=== PATIENT | female | born 1935 | race Caucasian/White ===

== ENCOUNTER 2016-12-09 11:30 | Inpatient (IN) | payer MEDICARE, OTHER ==
[~2016-12-09] VITALS: Ht 165.1 cm; Wt 85.4 kg
--- NOTE | ~2016-12-09 | HP ---
PATIENT'S NAME: JESICA MCKEON [facility] AGE: 81 Y [address] ROOM: [address] [place], [place] [address] LOCATION: GPCU ADMIT DATE: 12/09/2016 History & Physical DISCHARGE DATE: FAMILY PHYSICIAN: PHYSICIAN, UNKNOWN ATTENDING PHYSICIAN: MANOLO OAKES DATE OF SERVICE: CHIEF COMPLAINT: Chest pain. HISTORY OF PRESENT ILLNESS: This is an 81-year-old female who has never complained of chest pain before and does not have any known cardiac history in the past according to the patient. The story is that she was visiting her who currently is living in Swing Bed in [place], [place] and around 4:30 p.m., the patient learned that her daughter had after undergoing cardiac stent placement. Shortly after, she developed this sudden onset of left-sided chest pain that she describes as a needle sharp type of pain, about intensity of 5/10, it is localized, does not radiate, and the pain is constant. The patient was taken down to the emergency room in [place], [place] where troponin was negative to first set according to the patient. According to the patient, no medications were given. The patient was kept for observation, however, her chest pain was always there, but intensity did go down from 5/10 of the initial presentation down to 2/10 overnight. This morning, she still had this chest pain on the left side of the chest, but now she describes as a chest tightness, still 2/10 intensity. A troponin check this morning at an outside facility came back elevated at 1.04, this was at 7:52 a.m. and a repeat troponin again at 9:02 a.m. went down to 0.86. EKG was performed at that time showed sinus rhythm, heart rate is within normal limits, and I do appreciate about [address]-depression in V4 to V6. No prior EKG for comparison. The patient was sent over here for further care. The patient's chest tightness was always on the left side and is not reproducible on touch and does not change with position. It has not worsened, it still has 2/10 intensity. She denies any shortness of breath. REVIEW OF SYSTEMS: As mentioned in the history of present illness. All other systems were reviewed and were negative except those mentioned in the history of present illness. PAST MEDICAL HISTORY: 1. Hypertension. 2. Hyperlipidemia. PATIENT'S NAME: JESICA MCKEON [facility] AGE: 81 Y [address] ROOM: [address] [place], [place] [address] LOCATION: [facility] ADMIT DATE: 12/09/2016 History & Physical DISCHARGE DATE: FAMILY PHYSICIAN: PHYSICIAN, UNKNOWN ATTENDING PHYSICIAN: MANOLO OAKES ALLERGIES: NO KNOWN DRUG ALLERGIES. HOME MEDICATIONS: Currently has been reconciled. The patient does take PERLA inhibitor and baby aspirin at home. PHYSICAL EXAMINATION: VITAL SIGNS: At the time of my dictation, temperature 98, heart rate 90, blood pressure 135/87, respirations 14, and saturation 97% on room air. GENERAL APPEARANCE: Alert and oriented x3, in no acute distress. HEENT: Pupils equally round and reactive to light. Extraocular muscles intact. Anicteric sclerae. Nasal turbinates are normal bilaterally. Moist oral mucosa. NECK: No JVD. CARDIOVASCULAR: Regular rate and rhythm. No murmur, no rubs, no gallops. Normal S1, S2. RESPIRATORY: Clear to auscultation. Chest wall, nontender to palpation. ABDOMEN: Soft, nontender, and nondistended. Bowel sounds present. No hepatosplenomegaly. EXTREMITIES: She has a chronic pedal edema in bilateral lower extremities, this is chronic from her varicose veins. SKIN: No ulcer, no rash, no cyanosis. She does have varicose veins in both legs. NEUROLOGICAL: Grossly nonfocal. LABORATORY DATA: CPK 184, troponin 4.4, CK-MB 11.3. White blood cells 14.7, hemoglobin 15, hematocrit 44, MCV 86.6, and platelets 279. Glucose 124, BUN 19, creatinine 1.5, sodium 140, potassium 3.1, chloride 104, CO2 27, calcium 9.3, and GFR 33. INR 1.04, PTT 51. IMAGING STUDIES: 1. EKG: Three were performed, one from outside facility, two from here today. a. The one from outside facility was done today and that shows minimal ST depression in the V4 to V6. Sinus rhythm. b. Second EKG was done here in our facility on December 09, 2016, at 12:32 p.m. shows sinus rhythm, heart rate of 95. Minimal ST depression in V3 to V6, is about the same depth of ST depression compared to the previous one. c. Third EKG was done here in our facility on December 09, 2016, at 1:54 p.m. shows sinus rhythm, heart rate of 95, still with minimal ST depression in V3 to V4, about the same depth as the prior EKG. No ST elevation. PATIENT'S NAME: JESICA MCKEON [facility] AGE: 81 Y [address] ROOM: [place] [address] LOCATION: [facility] ADMIT DATE: 12/09/2016 History & Physical DISCHARGE DATE: FAMILY PHYSICIAN: PHYSICIAN, UNKNOWN ATTENDING PHYSICIAN: MANOLO OAKES ASSESSMENT AND PLAN: 1. Non-ST elevation myocardial infarction: Start ACS protocol. Continue IV heparin drip per ACS protocol. Start nitroglycerin drip, titrate for chest pain relief. Start aspirin full dose followed by baby dose daily. Start Lopressor p.o. 25 mg b.i.d. with holding parameter. Start Lipitor 80 mg right now and then daily. IV morphine p.r.n. for pain and anxiety relief. Can have a cardiac diet and n.p.o. after midnight in anticipation for cardiac cath in the morning. Echo right now stat. Cycle cardiac enzymes every 6 hours. I will get a chest x-ray also. Further plan will depend on clinical course. If the chest pain gets worse, we will repeat EKG and also cardiac enzymes stat. Currently, the patient is comfortable, only rating the chest tightness as 2/10. I have already spoken to on-call predictive maintenance technician, Dr. Barron, and I have already went over the plan of care with Dr. Barron. 2. Acute kidney injury: IV fluids hydration right now with half normal saline at 75 mL/h and also start p.o. Mucomyst 600 mg p.o. b.i.d. Check renal panel in the morning and also check urine electrolytes. 3. Hypertension: Continue the medications already mentioned in #1. For now, I will hold PERLA inhibitor and amlodipine given that they are not part of the acute ACS protocol, but they can be resumed after the cardiac intervention with holding parameter. 4. Hyperlipidemia: Check lipid panel and also A1c in the morning. Continue with Lipitor 80 mg p.o. daily. 5. Code Status: She is a full code. 6. Deep venous thrombosis prophylaxis: She is on heparin drip. Time spent in care on the day of admission 50 minutes, where 20 minutes was spent on chart review, interview, and also on physical examination. The remainder of the time was spent on counseling including going over the plan of care with the patient and also addressing all the questions and concerns the patient and her family members had to their satisfaction. This time also includes getting in touch with the on-call predictive maintenance technician, Dr. Barron, and went over the plan of care with him and also by calling the rehabilitation technician to perform echo stat. Further plan will depend on clinical course. MANOLO OKAES MD CC/sanna PATIENT'S NAME: JESICA MCKEON [facility] AGE: 81 Y [address] ROOM: [place] [address] LOCATION: [facility] ADMIT DATE: 12/09/2016 History & Physical DISCHARGE DATE: FAMILY PHYSICIAN: PHYSICIAN, UNKNOWN ATTENDING PHYSICIAN: MANOLO OAKES /[id number] D: [id number] T: [id number] HISTORY & PHYSICAL
--- NOTE | ~2016-12-09 | CATH ---
Cardiac Diagnostic Report Demographics Patient Name MIKE MOONEY Gender Female A Date of 1935 Age 81 year(s) Patient Number [id number] Date of Study 12/10/2016 Visit Number [id number] Room Number G[address] [place] [id number] Ht 165.1 cm Wt 85.45 kg Referring Shazia Andrews Lucas Primary Physician Physician Performing Beatrice Cui MD Secondary Physician Physician Diagnostic Beatrice Cui MD Assisting Physician Physician Interventional Physician Corner Trimmer Operator Physician Findings and Conclusions Diagnostic Findings and Conclusion Nonobstructive CAD. Diagnostic Recommendations Medical therapy. Beta blockers. PERLA-I. Procedure Description The patient was brought to the diagnostic cardiac catheterization-EP laboratory in the fasting, non-sedated state. Informed consent was obtained in the written and verbal form after the risks and benefits were explained. The patient had no further questions and agreed to proceed. The planned puncture-incision site(s) were shaved and prepped with ChloraPrep and draped in the usual sterile manner. Conscious sedation, supplemental oxygen, and pain control medications were delivered by a registered nurse under physician guidance. Surface ECG rhythm, blood pressure measurement, and pulse oximetry were monitored throughout the procedure. Arterial access. The access site was infiltrated with lidocaine. The vessel was entered with the Seldinger technique. A sheath was advanced into the vessel and used for catheter placement. Selective left coronary angiography. A catheter was advanced into the left coronary vessel ostium under Fluoroscopic guidance. Contrast was injected by hand. Images were obtained in multiple projections. Selective right coronary angiography. A catheter was advanced into the right coronary vessel ostium under fluoroscopic guidance. Contrast was injected by hand. Images were obtained in multiple projections. Left heart catheterization with ventriculography. A catheter was advanced across the aortic valve to the left ventricle under fluoroscopic guidance. Resting hemodynamics were obtained. With the catheter at the left ventricular apex, contrast was injected. Images were obtained in [facility] projections. Post-ventriculography LV pressure was obtained. The catheter was gradually withdrawn into the aorta with continuous pressure recording. Arterial artery hemostasis was achieved. The patient was transferred to a regular nursing floor via cart accompanied by a nurse. The patient left the laboratory in stable condition. Diagnostic Cath Status: Urgent Procedure Procedure Type Diagnostic procedure:Ventriculogram:, Left, Angiography:, Coronary Angios w/[facility] Indications: Elevated Troponin. The procedure was explained in detail to the patient. Risks, complications and alternative treatments were reviewed. Written consent was obtained. Medications Reviewed with Patient prior to Procedure. Angiographic Findings Dominance: Right Cardiac Arteries and Lesion Findings LMCA: Normal (0% Stenosis).Large. LAD: Medium, proximal plaque. Diagonal 1 small, okay. Lesion on Prox LAD: 40% stenosis . LCx: Normal (0% Stenosis).Large, normal. OM 1 small, okay. OM 2 large, normal. RCA: Normal (0% Stenosis).Medium. PL medium, normal. PDA medium, normal. Coronary Tree Procedure Data Procedure Date Date: 12/10/2016Start: 11:44 AMEnd: 12:06 PM Entry Locations - Retrograde Percutaneous access was performed through the Right Femoral artery (Primary location). A 6 Fr sheath was inserted. Hemostasis was successfully obtained using Perclose ProGlide (Cole). Closure Comments: Deployed by RT. Jadyn. Procedure Medications Order and Administration + + + +-------+ !Time !Medication !Dosage !Route ! + + + +-------+ !12/10/2016 11:43 AM !Versed !1 mg !I.V. ! + + + +-------+ !12/10/2016 11:44 AM !Fentanyl !25 mcg !I.V. ! + + + +-------+ !12/10/2016 11:49 AM !Oxygen !2 l/min !NC ! + + + +-------+ !12/10/2016 11:54 AM !Nitroglycerin !1 tabs !S.L. ! + + + +-------+ Devices Used - A6 Fr. BS JL 4 Diag. Catheterwas used for:Left coronary angiography. - A6 Fr. BS JR 4 Diag. Catheterwas used for:Right coronary angiography. - A6 Fr. BS Angled Pigtail Diag. Catheterwas used for:Left ventriculography. Contrast Material - Isovue 37879 ml Fluoroscopy Time: Diagnostic: 2:54 minutes. Total: 2:54 minutes. Fluoroscopy Dose: Diagnostic: 906 mGy. Total: 906 mGy. Estimated Blood Loss: 3 ml. Medical History Performed Procedures and Imaging Results - No ACC stress or imaging studies were performed. Allergies - No known allergies. Risk Factors The patient risk factors include:last creatinine: 1.3 mg/dl, creatinine clearance: 44.23 ml/min and former tobacco use. Admission Data Admission Date: 12/09/2016 Admission Time: 11:51 AM Admit Source: [facility] facility Insurance Payors: Medicare. Admission Medications + +------+------+ + + + + !Medication !Dosage!Times !Last !Last !Administered !Comments ! ! ! !Per !Delivery !Delivery ! ! ! ! ! !Day !Date !Time ! ! ! + +------+------+ + + + + !Aspirin ! ! ! ! !Yes ! ! !(any) ! ! ! ! ! ! ! + +------+------+ + + + + !PERLA ! ! ! ! !Yes ! ! !Inhibitor ! ! ! ! ! ! ! !(any) ! ! ! ! ! ! ! + +------+------+ + + + + Clinical Evaluation Leading to Procedure - The patient's CAD presentation was assessed as: Non-STEMI. - The patient's anginal syndrome during the past two weeks was assessed as: Class IV according to the [place] Cardiovascular Society Classification System (CCS). Anti-anginal medications were prescribed during the past two weeks. The medication is: Ca channel Blockers. VA LV function assessed as:Abnormal. Ejection Fraction - Method: LV gram. EF%: 5. LVA Segment Contractility 1 - Normal 3 - Mild 5 - Severe 7 - Dyskinesis hypokinesis hypokinesis 2 - 4 - Moderate 6 - Akinesis 8 - Aneurysm Hypokinesis hypokinesis Hemodynamics Condition: Rest O2 Consumption: Estimated: 179.98Heart Rate: 81 bpm Pressures (mmHg) +-----+ + !Site !Pressure ! +-----+ + !AO !99/59 (69) ! +-----+ + !AO !93/37 (62) ! +-----+ + !LV !98/7 ,23 ! +-----+ + !LV !103/8 ,22 ! +-----+ + !LV !98/7 ,24 ! +-----+ + !LV !98/7 ,24 ! +-----+ + !AO !104/44 (71) ! +-----+ + !LV !99/7 ,23 ! +-----+ + Valve Gradients and Areas + +---------+---------+---------+ +---------+ + !Valve !Peak !Mean !Area !Index !Flow !Source ! + +---------+---------+---------+ +---------+ + !Aortic !0 !0 ! ! ! ! ! + +---------+---------+---------+ +---------+ + !Aortic !0 !0 ! ! ! ! ! + +---------+---------+---------+ +---------+ + Shunts Oxygen Values O2 Capacity 204 O2 Consumption 179.98 Discharge Data Discharge Date: 12/11/2016 Hospital Status: Inpatient Signatures dtt: See Barron (cardio) dtd: 12/10/16 1144 Physician Self Edit
--- NOTE | ~2016-12-09 | ECHO ---
Transthoracic Echocardiography Report (TTE) Demographics Patient Name JESICA MCKEON Date of Study 12/09/2016 A Patient Number [id number] Visit Number [id number] Date of 1935 Room Number G6327 Gender Female Number Age 81 year(s) Referring Cynthia Ruiz MD Parachute Taper Brandon Najera RDCS, Physician RVT Physician Interpreting Beatrice Cui MD Clothespin Machine Operator Physician Supervising Ordering Cynthia Ruiz MD, MD/MLP Physician Nurse Stress Respiratory Assistant Conclusions Contractility Score Summary At rest the following contractility abnormalities were noted: Hypokinesis of the Mid carlos a-lateral, the Mid inferior, the Mid infero-lateral, the Basal carlos a-septal, the Apical anterior and the Apical cap segments; Akinesis of the Mid anterior, the Mid carlos a-septal, the Mid infero-septal, the Apical inferior, the Apical septal and the Apical lateral segments. Contractility of all other segments appeared normal. Summary The estimated left ventricular ejection fraction is 35-40%. Diastolic assessment reveals Grade I diastolic dysfunction. After Definity contrast iv there is no filling defect suggestive of thrombus. Mild tricuspid regurgitation by color Doppler. There is mild pulmonary hypertension. The pulmonary pressure (RVSP) is 41.21 mmHg. Procedure Type of Study TTE procedure:2D Echocardiogram, Echo with Contrast. Procedure Date Date: 12/09/2016 Start: 02:36 PM Study Location: Inpatient Portable Technical Quality: Adequate visualization Indications:Chest pain. Appropriate Use Criteria: 9 Patient Status: STAT Contrast Medium: Definity. Amount - 4 ml HR: 88 bpm BP: 120/66 mmHg M-Mode/2D Measurements LV Diastolic Dimension: 5.02 cm LV Systolic Dimension: 3.62 cm LV Septum Diastolic: 0.79 cm LV PW Diastolic: 0.79 cm AO Root Dimension: 3.4 cm Cardiac Output: 3.27 l/min AV Cusp Separation: 2.1 cm RV Diastolic Dimension: 3.12 cm LA volume: 46 ml LVOT: 1.9 cm RV Base: 3.1 cm LVOT VTI: 13.1 cm RV Mid: 2.27 cm LV Stroke volume: 37.12 ml TAPSE: 2 cm TDI-S': 12.1 cm/s Doppler Measurements AV Peak Velocity: 1.06 m/s MV Peak E-Wave: 0.6 m/s AV Peak Gradient: 4.49 mmHg MV Peak A-Wave: 0.91 m/s AV Mean Gradient: 3 mmHg MV E/A Ratio: 0.66 LVOT Peak Velocity: 0.63 m/s MV Deceleration Time: 208 msec TR Velocity:2.56 m/s PV Peak Velocity: 1.13 m/s TR Gradient:26.21 mmHg PV Peak Gradient: 5.11 mmHg Estimated RAP:15 mmHg Estimated PASP: 41.21 mmHg Estimated RVSP: 41 mmHg A' Septal Velocity: 0.11 m/s E' Septal Velocity: 0.04 m/s A' Lateral Velocity: 0.1 m/s E' Lateral Velocity: 0.04 m/s Findings Left Ventricle Diastolic assessment reveals Grade I diastolic dysfunction. After Definity contrast iv there is no filling defect suggestive of thrombus. Right Ventricle Normal right ventricle structure and function. Left Atrium Normal left atrial size. Right Atrium Normal right atrial size. Mitral Valve Trivial mitral regurgitation by color Doppler. Aortic Valve Normal aortic valve structure and function. Tricuspid Valve Mild tricuspid regurgitation by color Doppler. There is mild pulmonary hypertension. The pulmonary pressure (RVSP) is 41.21 mmHg. Pulmonic Valve Normal pulmonic valve structure and function. Pericardial Effusion No evidence of pericardial effusion. Epicardial fat pad noted. Miscellaneous Visualized portions of the aortic root and ascending aorta appear normal in size. Pleural Effusion No evidence of pleural effusion. Contractility Score LV regional wall motion:(0-Non visualized 1-Normal 2-Hypokinesis 3-Akinesis 4-Dyskinesis 5-Aneurysm) Signature dtt: See Barron (cardio) dtd: 12/09/16 1436 Physician Self Edit
--- NOTE | ~2016-12-09 | CON ---
PATIENT'S NAME: JESICA MCKEON [facility] AGE: 81 Y [address] ROOM: [place] [address] LOCATION: GPCU ADMIT DATE: 12/09/2016 Consultation DISCHARGE DATE: FAMILY PHYSICIAN: DARRYL MCCRAY. ATTENDING PHYSICIAN: CATARINO OAKES REFERRING PHYSICIAN: See Barron MD REFERRING PHYSICIAN: Catarino Oakes MD. FAMILY PHYSICIAN: Darryl Mccray MD, in [place]. HISTORY OF PRESENT ILLNESS: This is an 81-year-old woman, who was transferred from the [facility] with complaints of sudden onset of chest discomfort. The pain came on after she had learned that her daughter, age 56, had of sudden cardiac while undergoing a heart catheterization with stent placement. Prior to this, she had not had any problems with chest pain or shortness of breath. She denied problems with orthopnea, PND, or peripheral edema. She denied any palpitations, lightheadedness, or dizziness. She had been under a little extra undue stress because her for the past year has been in a swing bed. He originally underwent a renal transplant, had a fall, and fractured one of his legs. He went to a swing bed for recuperation and had a second fall and was not treated right away, and therefore, now is chair bound. He also has problems now with worsening dementia. While in [place], she had elevated troponin and small ST depression noted in V4 through V6. She was, therefore, given a nitroglycerin and heparin and transferred to [place] for further definitive care. PAST MEDICAL HISTORY: 1. Essential hypertension. 2. Hyperlipidemia. PAST SURGICAL HISTORY: She had a hysterectomy with bilateral oophorectomy on 12/05/1983, colonoscopy on 09/07/2010, colon resection due to scar tissue. She had an anal sphincterotomy, T and A, cataract surgery, appendectomy, cholecystectomy. She had breast biopsies and skin cancers removed. ALLERGIES: NONE TO MEDICATIONS. HOME MEDICATIONS: 1. Norvasc 5 mg every day. PATIENT'S NAME: JESICA MCKEON [facility] AGE: 81 Y [address] ROOM: [place] [address] LOCATION: GPCU ADMIT DATE: 12/09/2016 Consultation DISCHARGE DATE: FAMILY PHYSICIAN: DARRYL MCCRAY ATTENDING PHYSICIAN: CATARINO OAKES 2. Aspirin 81 mg daily. 3. Vitamin D3 400 international units daily. 4. Unisom 50 mg every h.s. 5. [place] 7.5/325 one to two every 6 hours p.r.n. 6. Niacin 250 mg every day. 7. [place] 3 fish oil 1000 mg every day. 8. Potassium chloride 20 mEq daily. 9. Altace 5 mg p.o. every day. 10. Maxzide 75 one tablet daily. 11. Active Q 200 mg p.o. every day. FAMILY HISTORY: Father at the age of 95, he had heart failure. Mother was an alcoholic. She at the age of 69 after aspiration. She has a brother and 2 sisters, who are alive and well. SOCIAL HISTORY: She is . She has a total of 4 girls, one who at the age of 56. She has a remote history of smoking cigarettes. She smoked for about 10 years, quit over 58 years ago. REVIEW OF SYSTEMS: GENERAL: No complaints of headache. No fevers, chills, or sweats. EYES: She wears corrective lenses. Ears: She has some mild hearing loss. Nose: No epistaxis or rhinorrhea. MOUTH: No gingival bleeding. THROAT: Denies sore throat, hoarseness, or difficulty swallowing. PULMONARY: Denies cough or hemoptysis. Dry nonproductive cough on PERLA inhibitor. GASTROINTESTINAL: Negative for nausea, vomiting, or diarrhea. She does have some problems with constipation at times. GENITOURINARY: Negative for urinary frequency. She does have some mild nocturia. MUSCULOSKELETAL: She has chronic back pain. NEUROLOGIC: No numbness or tingling or feeling off-balance. PSYCHIATRIC: She does have problems with anxiety. PHYSICAL EXAMINATION: VITAL SIGNS: She is 5 feet 5 inches, her weight is 188 pounds with a BMI of 31.3. Blood pressure is 138/78, heart rate is 90, temperature is 97.8, respirations 20. GENERAL: She is alert, oriented, very pleasant female, who appears to be in no acute distress. SKIN: Warm, dry, and pink. PATIENT'S NAME: JESICA MCKEON [facility] AGE: 81 Y [address] ROOM: [id number] [place], [place] [id number] [facility] ADMIT DATE: 12/09/2016 Consultation DISCHARGE DATE: FAMILY PHYSICIAN: DARRYL MCCRAY ATTENDING PHYSICIAN: CATARINO OAKES HEENT: Pupils are equal, round, and react briskly. NECK: Soft and supple. No lymphadenopathy. No thyromegaly. JVD is flat. CV: Regular with a normal S1 and S2. No murmur was appreciated. ABDOMEN: Soft. EXTREMITIES: Show no peripheral edema. No clubbing. No cyanosis. Distal pulses are 2+/4. LABORATORY DATA: Troponin-T initially was 0.86. It did bump to 4.4. ProBNP is 10,551. Hemoglobin 15, hematocrit 44, white count 14.7, and platelets are 279. BUN is 19; creatinine 1.5; glucose 124; sodium 140; initial potassium was 3.1, potassium was being replaced; magnesium initially 1.7, it was also being replaced. Hemoglobin A1c was 6. Her cholesterol was 145, triglycerides 134, HDL 42, LDL was 77. UA is normal. ASSESSMENT: Elevated cardiac enzymes. We will check an echocardiogram on 12/09/2016 and then we will plan on a left heart catheterization on 12/10/2016. The risks and benefits of the heart catheterization have been discussed. The assessment and plan, history of present illness, and physical exam are per Dr. Barron. We would like to thank Cynthia for allowing us to participate in the patient's care. RACHEL KIRKLAND APRN FOR MD DELILAH GROVES/modl /[id number] d: 12/11/16 0121 t: 12/26/16 1650, CONSULTATION REPORT
--- NOTE | ~2016-12-09 | DS ---
PATIENT'S NAME: JESICA MCKEON [facility] AGE: 81 Y [address] ROOM: [address] [place], [place] [address] LOCATION: GPCU ADMIT DATE: 12/09/2016 Discharge Summary DISCHARGE DATE: 12/11/2016 FAMILY PHYSICIAN: ATTENDING PHYSICIAN: Catarino Marie PRIMARY DIAGNOSES: 1. Takotsubo. 2. Essential hypertension. 3. Dyslipidemia. 4. Acute kidney injury on chronic kidney disease, stage 3. PRINCIPAL PROCEDURES: Done for the patient includes a left heart catheterization by Dr. Barron. LABORATORY DATA: Troponin highest level obtained was 4.40, CPK highest level obtained was 184, proBNP 10,551. WBC on admission 14.7, prior to discharge was 10.5; H and H on admission were 15.0 and 44.0, prior to discharge were 12.2 and 36.3; platelet was stable throughout the hospital stay. Creatinine on admission was 1.5, prior to discharge was 1.2; sodium on admission was 140, was stable throughout the hospital stay, at 140 upon discharge; potassium on admission was 3.1, prior to discharge was 3.5; bicarb was stable throughout hospital stay, at 21 upon discharge. Hemoglobin A1c was 6.0. Total cholesterol 145, triglyceride 134, HDL 42, LDL 77. Procalcitonin 0.06. RADIOLOGY DATA: Chest x-ray, no acute process. Echocardiogram has read the following: Contracted abnormalities were noted. Hypokinesis of the mid anterolateral, the mid inferior, the mid inferolateral, the basal, the basal anteroseptal, the apical anterior, and apical cap segments. Ejection fraction 35% to 40%, diastolic grade 1 dysfunction. There was no filling defect suggestive of thrombus after definitive contrast. Mild tricuspid regurgitation. PA pressure 41.2. Left heart catheterization, nonobstructive CAD. HOSPITAL COURSE: For history of present illness, please take a look at the H and P, which was done by Dr. Marie. The patient was admitted to Progressive Care Unit. She was put on heparin as per the ACS protocol. She had a Cardiology consult. Next day of admission, the patient had a cardiac cath, which essentially was negative, however, with an echocardiogram, which showed depressed ejection fraction of 35% to 40% with also abnormal wall motion, diagnosis of takotsubo was made, and the patient's medications were optimized by the local coordinator, and the next day after cardiac cath, the patient was stable and was discharged home. She also did present with BIANCA on chronic PATIENT'S NAME: JESICA MCKEON [facility] AGE: 81 Y [address] ROOM: [address] [address] LOCATION: GPCU ADMIT DATE: 12/09/2016 Discharge Summary DISCHARGE DATE: 12/11/2016 FAMILY PHYSICIAN: ATTENDING PHYSICIAN: Catarino Marie kidney disease, stage 3, which responded to IV fluids, though her baseline creatinine was unknown prior to discharge. DISCHARGE INSTRUCTIONS: The patient is to be on a low-sodium diet, fluid restriction to 2 quarts, and PCP is to repeat her BNP upon visit. She is to follow up with Dr. Barron in 2 weeks in [place]. MEDICATIONS UPON DISCHARGE: 1. Ramipril 5 mg p.o. daily. 2. Aspirin 81 mg p.o. daily. 3. Potassium 20 mEq p.o. daily. 4. Active Q 200 mg p.o. daily. 5. Lopressor 25 mg p.o. twice daily, new medication. 6. Vitamin D 400 mg p.o. daily. 7. Unisom 50 mg p.o. q.h.s. 8. [place] 7.5/325 mg 1 to 2 tablets p.o. every 6 hours p.r.n. 9. Niacin 250 mg p.o. daily. 10. Fish oil 1 g daily. 11. Maxzide 75 one tablet p.o. daily p.r.n. MD VIK NIEVES/sanna /[id number] d: 12/12/16 0120 t: 12/15/16 1429, DISCHARGE SUMMARY
[2016-12-09] MEDS ORDERED: ALTACE5 M1 PO (12:21)
[2016-12-09] MEDS ORDERED: NORVASC5 MG PO (12:21)
[2016-12-09] MEDS ORDERED: K-TAB ER20 MEQ PO (12:21)
[2016-12-09] MEDS ORDERED: ACTIVE-Q200 MG PO (12:23)
[2016-12-09] MEDS ORDERED: VITAMIN D-40400 UNIT PO (12:26)
[2016-12-09] MEDS ORDERED: UNISOM50 MG PO (12:27)
[2016-12-09] MEDS ORDERED: NORCO 7.5-3251 EACH PO (12:28)
[2016-12-09] MEDS ORDERED: NIACIN250 MG PO (12:30)
[2016-12-09] MEDS ORDERED: ASPIRIN (CHILDR81 MG PO (12:30)
[2016-12-09] MEDS ORDERED: FISH OIL 1,001000 MG PO (12:31)
[2016-12-09 12:47] LABS: BASOPHIL # 0.1 K/uL (0.0-0.2); BASOPHIL % 0.3 %; EOSINOPHIL % 0.1 %; IMMATURE GRANULOCYTE # 0.1 K/uL (0.0-0.3); IMMATURE GRANULOCYTE % 0.3 %; LYMPHOCYTE # 1.6 K/uL (0.8-4.0); LYMPHOCYTE % 10.6 %; MCH 29.5 pg (27.0-34.0); MCHC 34.1 gm/dL (32.0-36.5); MCV 86.6 fl (83.0-98.0); MPV 10.7 fl (9.4-12.4); NEUTROPHIL % 81.7 %; NRBC % 0 /100WBC (0-0.00); PLATELET COUNT 279 K/uL (150-450); RBC 5.08 M/uL (3.00-5.00); RDW-CV 13.5 % (11.9-14.6); WBC 14.7 K/uL (4.0-11.0)
[2016-12-09 13:00] LABS: INR - (THERAPEUTIC) 1.04 (0.92-1.07); PROTIME 10.9 SECONDS (9.8-11.4)
[2016-12-09 13:07] LABS: ANION GAP 12.1 (10.0-19.0); CALCIUM 9.3 mg/dL (8.5-10.5); CREATININE 1.5 mg/dL (0.5-1.1); POTASSIUM 3.1 mMol/L (3.7-5.1)
[2016-12-09 14:25] LABS: ALBUMIN 3.7 gm/dL (3.5-5.0); MAGNESIUM 1.7 mg/dL (1.8-2.6); TOTAL BILIRUBIN 0.7 mg/dL (0.0-1.5); TOTAL PROTEIN 7.3 g/dL (6.0-8.4)
[2016-12-09 18:55] LABS: BILIRUBIN URINE NEGATIVE (NEGATIVE); BLOOD URINE NEGATIVE /UL (NEGATIVE); COLOR URINE YELLOW (YELLOW); GLUCOSE URINE NEGATIVE (NEGATIVE); KETONE URINE 15 mg/dL (NEGATIVE); LEUKOCYTES URINE NEGATIVE /UL (NEGATIVE); NITRITE URINE NEGATIVE (NEGATIVE); PH URINE 6.5 (4.0-8.0); PROTEIN URINE NEGATIVE (NEGATIVE); TURBIDITY URINE CLEAR (CLEAR); UROBILINOGEN URINE NORMAL (NORMAL)
[2016-12-10 02:13] LABS: ANION GAP 13.6 (10.0-19.0); CALCIUM 8.2 mg/dL (8.5-10.5); CREATININE 1.3 mg/dL (0.5-1.1); POTASSIUM 3.6 mMol/L (3.7-5.1)
[2016-12-10 07:15] LABS: HEMATOCRIT 40.9 % (30.0-46.0); HEMOGLOBIN 13.7 g/dL (10.0-15.0); MCHC 33.5 gm/dL (32.0-36.5); MCV 86.5 fl (83.0-98.0); MPV 10.7 fl (9.4-12.4); RBC 4.73 M/uL (3.00-5.00); RDW-CV 13.6 % (11.9-14.6); WBC 13.4 K/uL (4.0-11.0)
[2016-12-10 07:32] LABS: ANION GAP 12.1 (10.0-19.0); CALCIUM 8.3 mg/dL (8.5-10.5); CREATININE 1.3 mg/dL (0.5-1.1); POTASSIUM 4.1 mMol/L (3.7-5.1)
[2016-12-10] MEDS ORDERED: MAXZIDE-751 TAB PO (14:15)
[2016-12-11 04:57] LABS: BASOPHIL % 0.4 %; EOSINOPHIL # 0.2 K/uL (0.0-0.5); EOSINOPHIL % 2.1 %; HEMATOCRIT 36.3 % (30.0-46.0); HEMOGLOBIN 12.2 g/dL (10.0-15.0); IMMATURE GRANULOCYTE % 0.4 %; LYMPHOCYTE # 1.7 K/uL (0.8-4.0); LYMPHOCYTE % 16.7 %; MCH 29.3 pg (27.0-34.0); MCHC 33.6 gm/dL (32.0-36.5); MCV 87.3 fl (83.0-98.0); MONOCYTE % 9.1 %; NEUTROPHIL # (ANC) 7.5 K/uL (1.8-7.8); NEUTROPHIL % 71.3 %; NRBC % 0 /100WBC (0-0.00); RBC 4.16 M/uL (3.00-5.00); RDW-CV 13.7 % (11.9-14.6); WBC 10.5 K/uL (4.0-11.0)
[2016-12-11 04:59] LABS: PLATELET COUNT 241 K/uL (150-450)
[2016-12-11 05:12] LABS: ANION GAP 12.5 (10.0-19.0); CALCIUM 8.3 mg/dL (8.5-10.5); CREATININE 1.2 mg/dL (0.5-1.1); MAGNESIUM 1.9 mg/dL (1.8-2.6); POTASSIUM 3.5 mMol/L (3.7-5.1)
[2016-12-11] MEDS ORDERED: LIPITOR80 MG PO (14:22)
[2016-12-11] MEDS ORDERED: LOPRESSOR25 MG PO (14:27)
== END 2016-12-11 14:45 | disposition disaster alternative care site (69) | DRG 287 ==
LOC: GPCU 11:30
PROVIDERS: ADMIT Internal Medicine
PROC: B246ZZZ Ultrasonography of Right and Left Heart (ICD-10-PCS; principal; 2016-12-09)
PROC: 4A023N7 Measurement of Cardiac Sampling and Pressure, Left Heart, Percutaneous Approach (ICD-10-PCS; 2016-12-10)
PROC: B2111ZZ Fluoroscopy of Multiple Coronary Arteries using Low Osmolar Contrast (ICD-10-PCS; 2016-12-10)
DX: I11.9 Hypertensive heart disease without heart failure (principal); N17.9 Acute kidney failure, unspecified; E78.5 Hyperlipidemia, unspecified; N18.3 Chronic kidney disease, stage 3 (moderate); Z82.41 Family history of sudden cardiac death
CPT/HCPCS: C1760; C8929; J1644; J2250; J2370; J3010; J3475; J3480; J7030; J7050; Q9957